=== PATIENT | male | born 1990 | race Caucasian/White ===

== ENCOUNTER 2018-10-03 10:11 | Emergency (ER) | payer OTHER ==
[2018-10-03] MEDS ORDERED: KETOROLAC 30 MG/ML 1 ML VIAL IM STA (10:40)
--- NOTE | 2018-10-03 11:01 | XR ---
EXAMINATION TYPE: XR lumbar spine 2 or 3V DATE OF EXAM: 10/03/2018 COMPARISON: NONE HISTORY: 28-year-old male twisting injury, pain TECHNIQUE: 3 views FINDINGS: Leftward truncal shift. 5 lumbar type vertebral bodies. Vertebral body heights are preserved and alig nment is maintained. IMPRESSION: Leftward truncal shift may be positional or secondary to muscle spasm. No vertebral compression colla pse or malalignment.
--- NOTE | 2018-10-03 11:06 | ED ---
General Adult HPI - General Chief complaint: Back Pain/Injury Stated complaint: [facility] - low back pain Time Seen by Provider: 10/03/18 10:23 Source: patient, RN notes reviewed Mode of arrival: ambulatory Limitations: no limitations - History of Present Illness Initial comments: Neptali is a 28-year-old male without any significant past medical history who pr esents to the emergency department for a chief complaint of low back pain. Patient states that yesterday he was working. 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 States that he was harnessed and twisted his back to tow picker a large piece of metal. States that he injured his back during that time. States that it was not very painful until late last night. States that it seems to have worsened overnight and now it is painful to walk. However he denies any weakness in his lower extremities. He does admit to a tingling sensation in the left leg but denies any weakness in this leg. Denies any saddle anesthesia or bladder or bowel changes. No fevers or chills. No history of IV drug abuse. States this pain feels lateral to the lumbar spine he feels he can feel a muscle spasm.Patient has no other complaints at this time including shortness of breath, chest pain, abdominal pain, nausea or vomiting, headache, or visual changes. - Related Data Previous Rx's Medication Instructions Recorded Cyclobenzaprine [Flexeril] 10 mg PO TID #12 tab 10/03/18 Allergies Allergy/AdvReac Type Severity Reaction Status Date / Time ibuprofen Allergy Rash/Hives Verified 10/03/18 10:26 Review of Systems ROS Statement: Those systems with pertinent positive or pertinent negative responses have been documented in the HPI. ROS Other: All systems not noted in ROS Statement are negative. Past Medical History Past Medical History: No Reported History History of Any Multi-Drug Resistant Organisms: None Reported Past Surgical History: No Surgical Hx Reported Past Psychological History: No Psychological Hx Reported Smoking Status: Current some day smoker Past Alcohol Use History: None Reported Past Drug Use History: None Reported General Exam Limitations: no limitations General appearance: alert, in no apparent distress Head exam: Present: atraumatic, normocephalic, normal inspection Eye exam: Present: normal appearance, PERRL, EOMI. Absent: scleral icterus, conjunctival injection, periorbital swelling ENT exam: Present: normal exam, mucous membranes moist Neck exam: Present: normal inspection, full ROM. Absent: tenderness, meningismus, lymphadenopathy Respiratory exam: Present: normal lung sounds bilaterally. Absent: respiratory distress, wheezes, rales, rhonchi, stridor Cardiovascular Exam: Present: regular rate, normal rhythm, normal heart sounds. Absent: systolic murmur, diastolic murmur, rubs, gallop, clicks Extremities exam: Present: normal capillary refill (Capillary refill less than 2 seconds, DVT of 2+ in the lower extremities bilaterally.), other (Sensation intact in lower extremities bilaterally. Strength 5 out of 5 in lower extremities bilaterally) Back exam: Present: muscle spasm (Left-sided paraspinal lumbar muscle spasm noted), other (Patient has limited range of motion of the lumbar spine due to pain,feels better in a slightly flexed position ). Absent: CVA tenderness (R), CVA tenderness (L), vertebral tenderness (No vertebral tenderness.) Neurological exam: Present: alert, oriented X3, CN II-XII intact Psychiatric exam: Present: normal affect, normal mood Course Vital Signs 10/03/18 10:18 Temperature 98.7 F Pulse Rate 88 Respiratory 18 Rate Blood Pressure 124/72 O2 Sat by Pulse 97 Oximetry Medical Decision Making - Medical Decision Making Neptali is a 28-year-old healthy male who presents for low back pain. Patient was working when he twisted to tow picker a piece of metal and injured his low back. States it started hurting approximately 6 hours later. On exam he does have some limited range of motion due to pain. Neurovascular status intact in lower extremities. Sensation intact this despite some tingling in his left leg. No saddle anesthesia. No bladder or bowel changes. No fevers. X-ray did show leftward truncal shift that may be positional or secondary to muscle spasm. No vertebral compression collapse or malalignment. This muscle spasm is consistent with patient's clinical presentation of left-sided paraspinal pain and tenderness with clinical muscle spasm noted. Patient given Toradol, some improvement symptoms. Patient will be discharged home with Motrin and Flexeril. However did discuss not working or driving while taking Flexeril. Patient will be given today and tomorrow off work. Patient requesting 2 weeks of work off on discharge. Patient will be given 2 days and with the weekend this will give him 5 full days off. Disposition Clinical Impression: Strain of lumbar region Disposition: HOME SELF-CARE Condition: Good Instructions (If sedation given, give patient instructions): Acute Low Back Pain (ED), Lower Back Exercises (ED) Additional Instructions: Please take Motrin for pain. Take Flexeril but do not drive or operate machinery while taking this. Be sure to do low back exercises. Follow up with primary care and orthopedics in one to 2 days. Return to the emergency department if you have any worsening symptoms. Prescriptions: Cyclobenzaprine [Flexeril] 10 mg PO TID #12 tab Is patient prescribed a controlled substance at d/c from ED?: No Referrals: Do Pastrana DO [Doctor of Osteopathic Medicine] - 1-2 days Adelfo Caro MD [REFERRING] - 1-2 days Time of Disposition: 12:21
[2018-10-03 12:47] VITALS: BP 134/72; PULSE 71; RESP 17; TEMP 97.7
== END 2018-10-03 12:47 | disposition home or self-care (01) ==
LOC: EC 10:11
DX: S39.012A Strain of muscle, fascia and tendon of lower back, initial encounter (principal); F17.200 Nicotine dependence, unspecified, uncomplicated; Z88.6 Allergy status to analgesic agent; X50.1XXA Overexertion from prolonged static or awkward postures, initial encounter; Y93.89 Activity, other specified; Y92.69 Other specified industrial and construction area as the place of occurrence of the external cause; Y99.0 Civilian activity done for income or pay
CPT/HCPCS: 72100; 99283; 96372; J1885